=== PATIENT | male | born 1980 | race Caucasian/White ===

== ENCOUNTER 2018-04-10 09:14 | Emergency (ER) | payer MEDICAID ==
[~2018-04-10] VITALS: Ht 160 cm; Wt 69.5 kg
[2018-04-10] MEDS ORDERED: ONDANSETRON HCL 4 MG/2 ML VIAL IVP ONE (09:45)
[2018-04-10] MEDS ORDERED: DIPHENOXYLATE/ATROP 2.5-0.025 MG TABLET PO ONE (09:45)
[2018-04-10] MEDS ORDERED: KETOROLAC TROMETHAMINE 30 MG/ML VIAL IVP ONE (09:45)
[2018-04-10] MEDS ORDERED: SODIUM CHLORIDE 0.9% 1,000 ML IV ONE (09:45)
[2018-04-10 10:20] LABS: EOSINOPHILS % (AUTO) 0.2 % (1.0-6.0); HEMATOCRIT 44.3 % (41-53); HEMOGLOBIN 15.5 g/dL (13.5-17.5); LYMPHOCYTES # (AUTO) 0.4 K/uL (1.0-4.8); LYMPHOCYTES % (AUTO) 3.5 % (22.0-44.0); MEAN CORPUSCULAR HGB CONC 34.9 G/dL (31.0-37.0); MEAN CORPUSCULAR VOLUME 80 fL (80-100); MONOCYTES # (AUTO) 0.5 K/uL (0.1-1.0); MONOCYTES % (AUTO) 4.3 % (2.0-9.0); NEUTROPHILS # (AUTO) 10.2 K/uL (1.8-7.7); PLATELET COUNT (AUTO) 276 K/uL (150-450); RED BLOOD CELL COUNT(AUTO) 5.52 MIL/uL (4.50-5.90); RED CELL DISTRIBUTION WIDTH 13.5 % (11.5-14.5)
[2018-04-10 10:24] LABS: ANION GAP 4 mmol/L (8-16); CALCIUM, TOTAL 8.4 mg/dL (8.8-10.5); CARBON DIOXIDE 32 mmol/L (22-29); CHLORIDE 101 mmol/L (98-107); CREATININE 0.91 mg/dL (0.60-1.30); GLOMERULAR FILTR. RATE CALC > 60 mL/min (>60); GLUCOSE,RANDOM 105 mg/dL (70-110); POTASSIUM 3.7 mmol/L (3.5-5.1); SODIUM SERUM 137 mmol/L (136-145); UREA NITROGEN, BLOOD 22 mg/dL (7-18)
[2018-04-10 10:31] LABS: ALANINE AMINOTRANSFERASE 49 U/L (12-78); ALKALINE PHOSPHATASE 70 U/L (46-116); ASPARTATE AMINOTRANSFERASE 27 U/L (15-37); TOTAL PROTEIN, SERUM 7.8 g/dL (6.4-8.2)
[2018-04-10 11:52] VITALS: BP 100/51
== END 2018-04-10 11:58 | disposition home or self-care (01) ==
LOC: EMS 09:15
DX: R10.84 Generalized abdominal pain (principal); R11.2 Nausea with vomiting, unspecified; R19.7 Diarrhea, unspecified
CPT/HCPCS: 36415; 80053; 85025; 96361; 96374; 96375; 99285; J1885; J2405; J7030

== ENCOUNTER 2018-12-03 22:00 | Emergency (ER) | payer SELFPAY ==
[~2018-12-03] VITALS: Ht 160 cm; Wt 72.7 kg
[2018-12-03 23:25] VITALS: BP 125/69
== END 2018-12-03 23:30 | disposition home or self-care (01) ==
LOC: EMS 22:01
DX: L03.114 Cellulitis of left upper limb (principal)

== ENCOUNTER 2021-03-23 19:10 | Emergency (ER) | payer MEDICAID ==
[~2021-03-23] VITALS: Ht 160 cm; Wt 72.7 kg
[2021-03-23 19:16] VITALS: BP 144/77
[2021-03-23] MEDS ORDERED: ONDANSETRON HCL 4 MG TABLET PO ONE (20:00)
[2021-03-23] MEDS ORDERED: PB/HYOSCY/ATR/SCOP/LIDO/MAALOX 55 ML BOTTLE PO ONE (20:00)
[2021-03-23 20:17] LABS: BASOPHILS % (AUTO) 0.1 % (0.0-2.0); EOSINOPHILS % (AUTO) 0.9 % (1.0-6.0); HEMATOCRIT 42.9 % (41-53); HEMOGLOBIN 14.4 g/dL (13.5-17.5); LYMPHOCYTES # (AUTO) 1.6 K/uL (1.0-4.8); LYMPHOCYTES % (AUTO) 24.8 % (22.0-44.0); MEAN CORPUSCULAR HEMOGLOBIN 27.6 pg (26.0-34.0); MEAN CORPUSCULAR HGB CONC 33.5 G/dL (31.0-37.0); MEAN CORPUSCULAR VOLUME 82 fL (80-100); MONOCYTES # (AUTO) 0.4 K/uL (0.1-1.0); MONOCYTES % (AUTO) 6.9 % (2.0-9.0); NEUTROPHILS # (AUTO) 4.3 K/uL (1.8-7.7); NEUTROPHILS % (AUTO) 67.3 % (40.0-70.0); PLATELET COUNT (AUTO) 275 K/uL (150-450); RED BLOOD CELL COUNT(AUTO) 5.21 MIL/uL (4.50-5.90); RED CELL DISTRIBUTION WIDTH 13.1 % (11.5-14.5)
[2021-03-23 20:25] LABS: ANION GAP 11 mmol/L (8-16); CALCIUM, TOTAL 9.3 mg/dL (8.8-10.5); CARBON DIOXIDE 28 mmol/L (22-29); CHLORIDE 100 mmol/L (98-107); CREATININE 0.91 mg/dL (0.60-1.30); GLOMERULAR FILTR. RATE CALC > 60 mL/min (>60); GLUCOSE,RANDOM 93 mg/dL (70-110); POTASSIUM 3.9 mmol/L (3.5-5.1); SODIUM SERUM 139 mmol/L (136-145); UREA NITROGEN, BLOOD 22 mg/dL (7-18)
[2021-03-23 20:31] LABS: ALANINE AMINOTRANSFERASE 87 U/L (12-78); ALBUMIN 4.4 g/dL (3.4-5.0); ALKALINE PHOSPHATASE 75 U/L (46-116); ASPARTATE AMINOTRANSFERASE 46 U/L (15-37); BILIRUBIN,TOTAL 0.6 mg/dL (0.1-1.0); LIPASE 166 U/L (73-393); TOTAL PROTEIN, SERUM 7.8 g/dL (6.4-8.2)
[2021-03-23] MEDS ORDERED: DiphenhydrAMINE HCL 50 MG CAPSULE PO ONE (21:30)
== END 2021-03-23 21:55 | disposition home or self-care (01) ==
LOC: EMS 19:12
DX: K52.9 Noninfective gastroenteritis and colitis, unspecified (principal)
CPT/HCPCS: 36415; 80053; 83690; 85025; 99284; Q0162

== ENCOUNTER 2023-01-16 21:44 | Emergency (ER) | payer MEDICAID, OTHER ==
[~2023-01-16] VITALS: Ht 165.1 cm; Wt 70.6 kg
[2023-01-16 23:00] LABS: BASOPHILS % (AUTO) 0.1 % (0.0-2.0); EOSINOPHILS % (AUTO) 0.3 % (1.0-6.0); HEMATOCRIT 44.1 % (41-53); HEMOGLOBIN 14.8 g/dL (13.5-17.5); LYMPHOCYTES # (AUTO) 0.7 K/uL (1.0-4.8); LYMPHOCYTES % (AUTO) 6.5 % (22.0-44.0); MEAN CORPUSCULAR HEMOGLOBIN 27.5 pg (26.0-34.0); MEAN CORPUSCULAR HGB CONC 33.5 G/dL (31.0-37.0); MEAN CORPUSCULAR VOLUME 82 fL (80-100); MONOCYTES # (AUTO) 0.4 K/uL (0.1-1.0); MONOCYTES % (AUTO) 4.2 % (2.0-9.0); NEUTROPHILS # (AUTO) 9.3 K/uL (1.8-7.7); PLATELET COUNT (AUTO) 282 K/uL (150-450); RED BLOOD CELL COUNT(AUTO) 5.37 MIL/uL (4.50-5.90); RED CELL DISTRIBUTION WIDTH 13.4 % (11.5-14.5)
[2023-01-16 23:01] LABS: NEUTROPHILS % (AUTO) 88.9 % (40.0-70.0)
[2023-01-16 23:13] LABS: ANION GAP 5 mmol/L (8-16); CALCIUM, TOTAL 9.3 mg/dL (8.8-10.5); CARBON DIOXIDE 32 mmol/L (22-29); CHLORIDE 102 mmol/L (98-107); CREATININE 0.86 mg/dL (0.60-1.30); GLOMERULAR FILTR. RATE CALC > 60 mL/min (>60); GLUCOSE,RANDOM 95 mg/dL (70-110); SODIUM SERUM 139 mmol/L (136-145); UREA NITROGEN, BLOOD 23 mg/dL (7-18)
[2023-01-16 23:17] LABS: ALANINE AMINOTRANSFERASE 40 U/L (12-78); ALBUMIN 4.7 g/dL (3.4-5.0); ALKALINE PHOSPHATASE 85 U/L (46-116); ASPARTATE AMINOTRANSFERASE 32 U/L (15-37); BILIRUBIN,TOTAL 0.9 mg/dL (0.1-1.0); LIPASE 148 U/L (73-393); TOTAL PROTEIN, SERUM 8.3 g/dL (6.4-8.2)
[2023-01-17 00:06] LABS: APPEARANCE,URINE CLEAR (CLEAR); BILIRUBIN,URINE NEGATIVE (NEGATIVE); GLUCOSE, URINE (UA) NEGATIVE (NEGATIVE); LEUKOCYTE ESTERASE ,URINE NEGATIVE (NEGATIVE); NITRATE,URINE NEGATIVE (NEGATIVE); OCCULT BLOOD,URINE NEGATIVE (NEGATIVE); PROTEIN,URINE 30-70 mg/dL (NEGATIVE); SPECIFIC GRAVITIY, URINE 1.034 (1.003-1.030)
[2023-01-17] MEDS ORDERED: SODIUM CHLORIDE 0.9% 1,000 ML IV ONE (02:45)
[2023-01-17] MEDS ORDERED: METOCLOPRAMIDE HCL 5 MG/ML 2 ML VIAL IVP ONE (03:00)
[2023-01-17 03:14] LABS: BASOPHILS % (AUTO) 0.1 % (0.0-2.0); EOSINOPHILS % (AUTO) 0.1 % (1.0-6.0); HEMOGLOBIN 14.5 g/dL (13.5-17.5); LYMPHOCYTES # (AUTO) 0.3 K/uL (1.0-4.8); LYMPHOCYTES % (AUTO) 3.5 % (22.0-44.0); MEAN CORPUSCULAR HEMOGLOBIN 27.6 pg (26.0-34.0); MEAN CORPUSCULAR HGB CONC 33.7 G/dL (31.0-37.0); MEAN CORPUSCULAR VOLUME 82 fL (80-100); MONOCYTES # (AUTO) 0.3 K/uL (0.1-1.0); MONOCYTES % (AUTO) 3.3 % (2.0-9.0); NEUTROPHILS # (AUTO) 9.2 K/uL (1.8-7.7); PLATELET COUNT (AUTO) 287 K/uL (150-450); RED BLOOD CELL COUNT(AUTO) 5.25 MIL/uL (4.50-5.90); RED CELL DISTRIBUTION WIDTH 13.6 % (11.5-14.5)
[2023-01-17 03:19] LABS: ANION GAP 2 mmol/L (8-16); CALCIUM, TOTAL 9.2 mg/dL (8.8-10.5); CARBON DIOXIDE 34 mmol/L (22-29); CHLORIDE 101 mmol/L (98-107); CREATININE 0.94 mg/dL (0.60-1.30); GLOMERULAR FILTR. RATE CALC > 60 mL/min (>60); GLUCOSE,RANDOM 109 mg/dL (70-110); POTASSIUM 4.3 mmol/L (3.5-5.1); SODIUM SERUM 137 mmol/L (136-145); UREA NITROGEN, BLOOD 23 mg/dL (7-18)
[2023-01-17 03:25] LABS: ALANINE AMINOTRANSFERASE 40 U/L (12-78); ALBUMIN 4.6 g/dL (3.4-5.0); ALKALINE PHOSPHATASE 84 U/L (46-116); ASPARTATE AMINOTRANSFERASE 30 U/L (15-37); BILIRUBIN,TOTAL 1.2 mg/dL (0.1-1.0); LIPASE 115 U/L (73-393); TOTAL PROTEIN, SERUM 8.2 g/dL (6.4-8.2)
[2023-01-17 04:35] VITALS: BP 118/53
== END 2023-01-17 04:52 | disposition home or self-care (01) ==
LOC: EMS 21:44
DX: K52.9 Noninfective gastroenteritis and colitis, unspecified (principal)
CPT/HCPCS: 99285; 81003; 83690; 85025; 36415; 96374; 96361; 74022; 93005; 80053; J2765; J7030

== ENCOUNTER 2024-04-18 22:50 | Emergency (ER) | payer OTHER ==
[~2024-04-18] VITALS: Ht 160 cm; Wt 68.0 kg
[2024-04-18 23:29] LABS: LYMPHOCYTES # (AUTO) 0.4 K/uL (1.0-4.8); MEAN CORPUSCULAR HEMOGLOBIN 28.1 pg (26.0-34.0); MEAN CORPUSCULAR VOLUME 84 fL (80-100); MONOCYTES # (AUTO) 0.5 K/uL (0.1-1.0)
[2024-04-18 23:32] LABS: BASOPHILS % (AUTO) 0.2 % (0.0-2.0); EOSINOPHILS % (AUTO) 0.3 % (1.0-6.0); HEMATOCRIT 44.2 % (41-53); HEMOGLOBIN 14.9 g/dL (13.5-17.5); LYMPHOCYTES % (AUTO) 4.5 % (22.0-44.0); MEAN CORPUSCULAR HGB CONC 33.7 G/dL (31.0-37.0); MONOCYTES % (AUTO) 5.2 % (2.0-9.0); NEUTROPHILS # (AUTO) 8.8 K/uL (1.8-7.7); PLATELET COUNT (AUTO) 281 K/uL (150-450); RED BLOOD CELL COUNT(AUTO) 5.29 MIL/uL (4.50-5.90); RED CELL DISTRIBUTION WIDTH 13.4 % (11.5-14.5); WHITE BLOOD COUNT (AUTO) 9.8 K/uL (4.5-11.0)
[2024-04-18 23:34] LABS: NEUTROPHILS % (AUTO) 89.8 % (40.0-70.0)
[2024-04-18 23:41] LABS: ANION GAP 6 mmol/L (8-16); CALCIUM, TOTAL 9.2 mg/dL (8.8-10.5); CARBON DIOXIDE 30 mmol/L (22-29); CHLORIDE 99 mmol/L (98-107); CREATININE 0.88 mg/dL (0.60-1.30); GLOMERULAR FILTR. RATE CALC > 60 mL/min (>60); GLUCOSE,RANDOM 103 mg/dL (70-110); POTASSIUM 3.6 mmol/L (3.5-5.1); SODIUM SERUM 135 mmol/L (136-145); UREA NITROGEN, BLOOD 17 mg/dL (7-18)
[2024-04-18] MEDS: ONDANSETRON HCL 4 MG/2 ML VIAL IVP ONE (23:45)
[2024-04-18] MEDS: FAMOTIDINE 20 MG/2 ML VIAL IVP ONE (23:45)
[2024-04-18] MEDS: MORPHINE SULFATE 2 MG/ML SYRINGE IVP ONE (23:46)
[2024-04-18] MEDS: SODIUM CHLORIDE 0.9% 1,000 ML IV ONE (23:46)
[2024-04-18] MEDS: MAG HYDROX/ALUMINUM HYD/SIMETH 30 ML SUSPENSION UDCUP PO ONE (23:46)
[2024-04-18 23:47] LABS: ALANINE AMINOTRANSFERASE 40 U/L (12-78); ALBUMIN 3.9 g/dL (3.4-5.0); ALKALINE PHOSPHATASE 95 U/L (46-116); ASPARTATE AMINOTRANSFERASE 30 U/L (15-37); BILIRUBIN,TOTAL 1.5 mg/dL (0.1-1.0); LIPASE 35 U/L (16-77); TOTAL PROTEIN, SERUM 7.7 g/dL (6.4-8.2)
[2024-04-19] MEDS ORDERED: SODIUM CHLORIDE 0.9% 100 ML ONE (00:33)
[2024-04-19] MEDS ORDERED: IOHEXOL 350 MG/ML 100 ML VIAL ONE (00:33)
[2024-04-19] MEDS ORDERED: ACET-2247 PO (01:19)
[2024-04-19] MEDS ORDERED: ONDA-104 PO (01:19)
[2024-04-19 01:41] VITALS: BP 124/70; PULSE 85; RESP 18; TEMP 97.3
== END 2024-04-19 02:00 | disposition home or self-care (01) ==
LOC: EMS 22:50
DX: K52.9 Noninfective gastroenteritis and colitis, unspecified (principal)
CPT/HCPCS: 99285; 96374; 96375; 96361; 80048; 80076; 83690; 85025; 36415; 74177; J3490; J2270; J2405; J7030; Q9967; J7050

== ENCOUNTER 2025-04-06 22:53 | Emergency (ER) | payer OTHER ==
[~2025-04-06] VITALS: Ht 157.5 cm; Wt 69.5 kg
[~2025-04-06 22:53] MED LIST: ACET-2247 PO; ONDA-104 PO
[2025-04-06 23:01] VITALS: BP 138/76; PULSE 65; RESP 18; TEMP 98.4; O2SAT 99
[2025-04-07] MEDS: ACETAMINOPHEN 500 MG TABLET PO ONE (00:24)
[2025-04-07] MEDS: IBUPROFEN 400 MG TABLET PO ONE (00:24)
[2025-04-07] MEDS: METOCLOPRAMIDE HCL 10 MG TABLET PO ONE (00:25)
[2025-04-07] MEDS ORDERED: METO5TAB95 PO (01:38)
== END 2025-04-07 01:20 | disposition home or self-care (01) ==
LOC: EMS 23:35
DX: G43.909 Migraine, unspecified, not intractable, without status migrainosus (principal); Z79.899 Other long term (current) drug therapy
CPT/HCPCS: 99284; Z7502; Z7610